=== PATIENT | male | born 1975 | race Caucasian/White ===

== ENCOUNTER 2021-10-31 18:07 | Emergency (ER) | payer OTHER, SELFPAY ==
--- NOTE | ~2021-10-31 | XR_ITS ---
EXAMINATION: XR chest 1V portable INDICATION: Cough, COVID 19 TECHNIQUE: Portable AP chest at 2230 hours COMPARISON: None FINDINGS: There are patchy opacities throughout all lung zones. There is no pleural effusion or pneum othorax. The cardiomediastinal silhouette is normal. IMPRESSION: 1. Diffuse lung disease, consistent with COVID 19 pneumonia. Reviewed, dictated and finalized at location F. M PROCESSING SPECIALIST
[2021-10-31 18:16] VITALS: BP 156/85; PULSE 101; RESP 19; TEMP 37.2; O2SAT 93
[2021-10-31 22:21] VITALS: BP 150/86; PULSE 84; RESP 18; O2SAT 93
--- NOTE | 2021-10-31 22:51 | PC.NURSE ---
walking o2 study done. patients o2 sat stayed at 93 %
--- NOTE | 2021-10-31 23:10 | ED.GENADULT ---
HPI - General Adult General Chief complaint: Shortness of Breath/Dyspnea Stated complaint: post covid SOB Time Seen by Provider: 10/31/21 22:09 History of Present Illness HPI narrative: Patient is a 46-year-old male who presents ER with concerns for shortness of breath related to Covid. First became symptomatic on 10/18, took a positive at home test on 10/19 and 10/22. He has been isolating at home. He had been feeling good for last couple days when today he started having more frequent cough and felt short of breath with exertion. He had a home pulse oximeter that showed 88% when he walks. He has no chest pain or chest pressure. He has no access to nebulizer or inhaler. No recent fevers. Reports his taste and smell is coming back today. Related Data Allergies Allergy/AdvReac Type Severity Reaction Status Date / Time Penicillins Allergy Intermediate rash Verified 10/31/21 22:24 Review of Systems Review of Systems: All systems reviewed & are unremarkable except as noted in HPI and below Constitutional: Constitutional: Denies chills, Reports fatigue and Denies fever(s) ENT: Denies nasal congestion and Denies sore throat Cardiovascular: Cardiovascular: Denies chest pain, Denies rapid heart rate and Denies radiating jaw, neck or arm pain Respiratory: Respiratory: Reports cough, Reports dyspnea and Denies wheezing Gastrointestinal: Gastrointestinal: Denies abdominal pain, Denies nausea and Denies vomiting Neurologic: Denies focal weakness and Denies numbness PMFSH Past Medical History Medical History (Updated 10/31/21 @ 23:15 by Ez Magana MD) Hypertension Surgical History Surgical History (Updated 10/31/21 @ 23:12 by Ez Magana MD) No history of previous surgery Social History Social History (Updated 10/31/21 @ 23:14 by Ez Magana MD) Smoking status: Never smoker Exam Narrative: GENERAL: Well-appearing, well-nourished, and in no acute distress. HEAD: Normocephalic, atraumatic. CHEST: Clear to auscultation. No respiratory distress. Occasional cough. HEART: Regular rate and rhythm. Normal peripheral pulses. EXTREMITIES: Normal range of motion. No edema. SKIN: Warm, dry, no rash. NEURO: Alert and oriented x3. Course Course Emergency Course: Chest x-ray with Covid pneumonia. No hypoxia with ambulation. Discharge home. Vital Signs Vital signs: Vital Signs Temperature 98.9 F 10/31/21 18:16 Pulse Rate 101 H 10/31/21 18:16 Respiratory Rate 19 10/31/21 18:16 Blood Pressure 156/85 H 10/31/21 18:16 Pulse Oximetry 93 10/31/21 18:16 Temperature 98.9 F 10/31/21 18:16 Pulse Rate 84 10/31/21 22:21 Respiratory Rate 18 10/31/21 22:21 Blood Pressure 150/86 H 10/31/21 22:21 Pulse Oximetry 93 10/31/21 22:21 Medical Decision Making Vital Signs Vital Signs: Vital Signs Temperature 98.9 F 10/31/21 18:16 Pulse Rate 101 H 10/31/21 18:16 Respiratory Rate 19 10/31/21 18:16 Blood Pressure 156/85 H 10/31/21 18:16 Pulse Oximetry 93 10/31/21 18:16 Temperature 98.9 F 10/31/21 18:16 Pulse Rate 84 10/31/21 22:21 Respiratory Rate 18 10/31/21 22:21 Blood Pressure 150/86 H 10/31/21 22:21 Pulse Oximetry 93 10/31/21 22:21 Imaging Data Radiologist's impression: ITS Impressions Chest X-Ray 10/31/21 22:42 IMPRESSION: 1. Diffuse lung disease, consistent with COVID 19 pneumonia. Discharge Plan Discharge Clinical Impression: Pneumonia due to COVID-19 virus Patient Disposition: Home, Self-Care Condition: Stable Instructions: Viral Pneumonia (ED) Additional Instructions: Return the ER if you have worsening shortness of breath, you cannot keep down food or water, you lose consciousness, or you have chest pain. Prescriptions: New albuterol sulfate 90 mcg/actuation HFA aerosol inhaler 4 puff INHALATION QID PRN (Reason: shortness of breath or wheezing) Qty: 8 RF: 0 Follow-up/[facility]
[2021-11-01 00:23] VITALS: BP 137/78; PULSE 86; RESP 18; O2SAT 93
== END 2021-11-01 00:23 | disposition home or self-care (01) ==
PROVIDERS: Emergency Provider Emergency Medicine; PCP Emergency Medicine
DX: U07.1 COVID-19 (principal); J12.82 Pneumonia due to coronavirus disease 2019; I10 Essential (primary) hypertension
CPT/HCPCS: 71045; 99283

== ENCOUNTER → 2021-11-14 10:30 | Outpatient (CLI) | payer BC, SELFPAY ==
--- NOTE | ~2021-11-14 | XR_ITS ---
EXAMINATION: XR chest 2V EXAM DATE: 11/14/2021 10:49 INDICATION: J18.9 Pneumonia, COVID pneumonia this month, Cough. TECHNIQUE: Frontal and lateral projections of the chest obtained and reviewed. Comparison is made to prior examination from 10/31/2021. FINDINGS: Improvement in previously seen airspace disease with only small amount residual right-sided airspace disease remaining, likely improvement in COVID pneumonia. No pneumothorax or pleural effusi on. Cardiomediastinal silhouette is normal. There are no osseous abnormalities identified. IMPRESSION: Nearly resolved airspace disease. Reviewed, dictated and finalized at location A. CAL CLERK
== END ==
PROVIDERS: PCP Emergency Medicine; Visit Provider Emergency Medicine
DX: J18.9 Pneumonia, unspecified organism (principal)
CPT/HCPCS: 71046

== ENCOUNTER → 2024-08-18 15:59 | Outpatient (REF) | payer BC, SELFPAY | LOC: ANHLAB 15:59 | PROVIDERS: PCP Emergency Medicine; Visit Provider Physician Assistant Surgical | DX: D22.39 Melanocytic nevi of other parts of face (principal) | CPT/HCPCS: 88305 ==